=== PATIENT | female | born 1990 | race American Indian/Alaskan Native ===

== ENCOUNTER 2016-12-12 13:16 | Outpatient (CLI) | payer BC, MEDICAID ==
[2016-12-12 15:17] LABS: Bacteria,Urine 2+ /HPF (Negative); Bilirubin,Urine NEG (Negative); Blood,Urine SM (Negative); Ketones,Urine NEG (Negative); Leukocyte Esterase,Urine LG (Negative); Nitrite,Urine NEG (Negative); Protein,Urine <15 mg/dL mg/dL (Negative); Urobilinogen,Urine < 2.0 mg/dL (<2.0)
[2016-12-12 15:24] VITALS: BP 117/89
== END 2016-12-12 17:08 | disposition home or self-care (01) ==
LOC: TRG 13:16
PROVIDERS: ATTEND Obstetrics & Gynecology
DX: O47.03 False labor before 37 completed weeks of gestation, third trimester (principal); Z3A.32 32 weeks gestation of pregnancy
CPT/HCPCS: 59025; 81001; 87086; 96360; 96361

== ENCOUNTER 2017-01-15 11:01 | Outpatient (CLI) | payer BC, MEDICAID ==
[2017-01-15 14:36] VITALS: BP 120/56
--- NOTE | 2017-01-15 15:32 | Ultrasound Report ---
BIOPHYSICAL PROFILE: INDICATION: well being. COMPARISON: None similar. TECHNIQUE: Transabdominal ultrasound with Doppler interrogation. 2 - breathing movements 2 - movements 2 - posture and tone 2 - Qualitative amniotic fluid volume 8 - TOTAL SCORE OF POSSIBLE 8 Heart Rate (bpm) 163 CONCLUSION: Findings, as above.
--- NOTE | 2017-01-15 15:34 | Ultrasound Report ---
OB LIMITED INDICATION: well being. COMPARISON: None similar at this institution. TECHNIQUE: Transabdominal grayscale ultrasound with Doppler interrogation. Gestation: Garcia Position: Cephalic Amniotic Fluid: WNL (7-24 cm) ZACH = 18.4 cm Heart Rate: 162 BPM CONCLUSION: Findings, as above.
== END 2017-01-15 14:40 | disposition home or self-care (01) ==
LOC: TRG 11:01
PROVIDERS: ATTEND Obstetrics & Gynecology
DX: O47.1 False labor at or after 37 completed weeks of gestation (principal); Z3A.37 37 weeks gestation of pregnancy
CPT/HCPCS: 59025; 76815; 76819

== ENCOUNTER 2017-01-30 15:55 | Inpatient (IN) | payer BC, MEDICAID ==
[2017-01-30] MEDS ORDERED: NORMODYNE IV ONE ×3 (17:41→20:07)
[2017-01-30 18:16] LABS: Hematocrit 40.7 % (30.3-42.9); Hemoglobin 13.7 gm/dl (10.1-14.3); Mean Corpuscular HGB Conc 34 % (30-34); Mean Corpuscular Hemoglobin 30 pg (28-32); Mean Corpuscular Volume 90 fl (79-97); Platelet Count 378 K/mm3 (140-440); Red Blood Count 4.55 M/mm3 (3.65-5.03); Red Cell Distribution Width 13.5 % (13.2-15.2); White Blood Count 10.3 K/mm3 (4.5-11.0)
--- NOTE | 2017-01-30 18:22 | Emergency Department Report ---
ED General Adult HPI - General Chief complaint: Neck Pain/Injury Stated complaint: NECK AND SHOULDER PAIN Time Seen by Provider: 01/30/17 18:16 Source: patient, RN notes reviewed, old records reviewed Mode of arrival: Ambulatory Limitations: No Limitations - History of Present Illness Initial comments: This is a 26-year-old female who is previously unknown to this provider. The patient recently had a . Her layaway clerk is Dr. Posada Patient presents to the ER with left-sided neck pain and headache. The neck pain is achy and sharp, and radiates into the occipital region. There is no neck stiffness, there is no severe sudden or thunderclap headache, there is no chest pain, there is no abdominal pain, there is no nausea or vomiting. -: Gradual, days(s) Location: head, neck Radiation: back (of head) Severity scale (0 -10): 0 Quality: aching Consistency: constant Improves with: none Worsens with: none Associated Symptoms: headaches - Related Data Home Medications Medication Instructions Recorded Confirmed Last Taken Vit-Fe Fumar-FA [ 1 tab PO QDAY 01/18/17 01/30/17 01/30/17 Vitamin] Previous Rx's Medication Instructions Recorded Last Taken Type Labetalol [Normodyne TAB] 200 mg PO BID #60 tablet 02/01/17 Unknown Rx Allergies Allergy/AdvReac Type Severity Reaction Status Date / Time No Known Allergies Allergy Unverified 05/02/15 19:44 ED Review of Systems ROS: Stated complaint: NECK AND SHOULDER PAIN Other details as noted in HPI Constitutional: denies: fever, malaise Eyes: denies: eye discharge ENT: denies: epistaxis Respiratory: denies: cough Cardiovascular: denies: chest pain Gastrointestinal: denies: vomiting Genitourinary: denies: dysuria Musculoskeletal: arthralgia Neurological: headache. denies: weakness ED Past Medical Hx - Past Medical History Hx Hypertension: No Hx Congestive Heart Failure: No Hx Diabetes: No Hx Deep Vein Thrombosis: No Hx Renal Disease: No Hx Sickle Cell Disease: No Hx Seizures: No Hx Asthma: No Hx COPD: No Hx HIV: No - Surgical History Additional Surgical History: - Social History Smoking Status: Never Smoker Substance Use Type: None - Medications Home Medications: Home Medications Medication Instructions Recorded Confirmed Last Taken Type Vit-Fe Fumar-FA [ 1 tab PO QDAY 01/18/17 01/30/17 01/30/17 History Vitamin] Labetalol [Normodyne TAB] 200 mg PO BID #60 tablet 02/01/17 Unknown Rx ED Physical Exam - General Limitations: No Limitations General appearance: alert, in no apparent distress - Head Head exam: Present: atraumatic, normocephalic - Eye Eye exam: Present: normal appearance, PERRL, EOMI, other (visual acuity intact to finger counting, color perception, reading at a close distance). Absent: nystagmus - ENT ENT exam: Present: normal exam, normal orophraynx, mucous membranes moist, normal external ear exam - Neck Neck exam: Present: normal inspection, tenderness (there is reproducible left- sided paracervical tenderness), full ROM. Absent: meningismus - Respiratory Respiratory exam: Present: normal lung sounds bilaterally. Absent: respiratory distress - Cardiovascular Cardiovascular Exam: Present: regular rate, normal rhythm, normal heart sounds. Absent: systolic murmur, diastolic murmur, rubs, gallop - GI/Abdominal GI/Abdominal exam: Present: soft, normal bowel sounds. Absent: distended, tenderness, guarding, rebound, rigid, pulsatile mass - Extremities Exam Extremities exam: Present: normal inspection, full ROM, pedal edema. Absent: joint swelling, calf tenderness - Back Exam Back exam: Present: normal inspection, full ROM. Absent: tenderness, CVA tenderness (R), paraspinal tenderness, vertebral tenderness - Neurological Exam Neurological exam: Present: alert, oriented X3, CN II-XII intact, normal gait, other (Extraocular movements intact. Tongue midline. No facial droop. Facial sensation intact to light touch in the V1, V2, V3 distribution bilaterally. 5 and 5 strength in 4 extremities.. Sensation is intact to light touch in 4 extremities.). Absent: motor sensory deficit - Psychiatric Psychiatric exam: Present: normal affect, normal mood - Skin Skin exam: Present: warm, dry, intact, normal color, other ( surgical site is healing well with no redness, pus or streaking). Absent: rash ED Course Vital Signs 01/30/17 01/30/17 01/30/17 17:23 17:52 18:00 Temperature 99.3 F Pulse Rate 77 67 Respiratory 18 16 Rate Blood Pressure 191/115 179/113 Blood Pressure [Right] O2 Sat by Pulse 100 99 98 Oximetry 01/30/17 01/30/17 01/30/17 18:03 18:11 18:21 Temperature 98.4 F Pulse Rate 68 79 69 Respiratory 13 13 25 H Rate Blood Pressure 181/122 179/113 179/113 Blood Pressure 181/122 [Right] O2 Sat by Pulse 100 100 98 Oximetry 01/30/17 01/30/17 01/30/17 18:36 19:43 19:51 Temperature Pulse Rate 63 66 Respiratory 25 H Rate Blood Pressure 179/112 194/117 174/105 Blood Pressure [Right] O2 Sat by Pulse 97 Oximetry 01/30/17 01/30/17 01/30/17 20:00 20:11 20:12 Temperature Pulse Rate 73 72 66 Respiratory 32 H 32 H Rate Blood Pressure 154/96 154/96 174/105 Blood Pressure [Right] O2 Sat by Pulse 96 97 Oximetry 01/30/17 01/30/17 01/30/17 20:21 20:25 20:26 Temperature 98.3 F Pulse Rate 74 80 66 Respiratory 30 H 25 H 25 H Rate Blood Pressure 165/87 194/117 Blood Pressure 174/105 [Right] O2 Sat by Pulse 98 97 98 Oximetry 01/30/17 01/30/17 01/30/17 20:30 20:35 20:41 Temperature Pulse Rate 82 88 89 Respiratory 21 27 H 26 H Rate Blood Pressure 154/84 154/84 154/84 Blood Pressure [Right] O2 Sat by Pulse 99 96 96 Oximetry 01/30/17 01/30/17 01/30/17 20:45 20:50 20:55 Temperature Pulse Rate 92 H 86 92 H Respiratory 25 H 28 H 25 H Rate Blood Pressure 126/67 154/84 154/84 Blood Pressure [Right] O2 Sat by Pulse 93 97 96 Oximetry 01/30/17 01/30/17 01/30/17 21:00 21:05 21:11 Temperature Pulse Rate 93 H 92 H 97 H Respiratory 25 H 25 H 30 H Rate Blood Pressure 132/72 132/72 132/72 Blood Pressure [Right] O2 Sat by Pulse 95 97 97 Oximetry 01/30/17 01/30/17 01/30/17 21:15 21:21 21:25 Temperature Pulse Rate 96 H 96 H 100 H Respiratory 28 H 27 H 27 H Rate Blood Pressure 148/75 148/75 126/67 Blood Pressure [Right] O2 Sat by Pulse 94 96 96 Oximetry 01/30/17 01/30/17 01/30/17 21:30 21:33 21:35 Temperature Pulse Rate 92 H 93 H 100 H Respiratory 28 H 26 H 21 Rate Blood Pressure 152/84 152/84 152/84 Blood Pressure [Right] O2 Sat by Pulse 94 96 96 Oximetry 01/30/17 01/30/17 01/30/17 21:37 21:39 21:41 Temperature Pulse Rate 99 H 100 H 105 H Respiratory 26 H 27 H 23 Rate Blood Pressure 152/84 152/84 152/84 Blood Pressure [Right] O2 Sat by Pulse 96 96 95 Oximetry 01/30/17 01/30/17 01/30/17 21:43 21:45 21:47 Temperature Pulse Rate 93 H 98 H 100 H Respiratory 32 H 28 H 34 H Rate Blood Pressure 152/84 137/92 137/92 Blood Pressure [Right] O2 Sat by Pulse 97 95 96 Oximetry 01/30/17 01/30/17 01/30/17 21:49 21:51 21:53 Temperature Pulse Rate 103 H 96 H 91 H Respiratory 28 H 35 H 25 H Rate Blood Pressure 137/92 137/92 154/96 Blood Pressure [Right] O2 Sat by Pulse 96 95 96 Oximetry 01/30/17 01/30/17 01/30/17 21:54 21:57 21:59 Temperature Pulse Rate 93 H 92 H 99 H Respiratory 25 H 34 H 28 H Rate Blood Pressure 154/96 152/84 152/84 Blood Pressure [Right] O2 Sat by Pulse 95 96 96 Oximetry 01/30/17 01/30/17 01/30/17 22:00 22:03 22:05 Temperature Pulse Rate 106 H 104 H 106 H Respiratory 29 H 27 H 27 H Rate Blood Pressure 132/90 132/90 123/76 Blood Pressure [Right] O2 Sat by Pulse 91 95 93 Oximetry 01/30/17 01/30/17 01/30/17 22:07 22:09 22:10 Temperature Pulse Rate 108 H 109 H 108 H Respiratory 26 H 27 H 27 H Rate Blood Pressure 123/76 119/73 119/73 Blood Pressure [Right] O2 Sat by Pulse 95 95 94 Oximetry 01/30/17 01/30/17 01/30/17 22:13 22:15 22:16 Temperature Pulse Rate 110 H 120 H 125 H Respiratory 27 H 34 H 32 H Rate Blood Pressure 119/73 123/81 123/81 Blood Pressure [Right] O2 Sat by Pulse 95 95 95 Oximetry 01/30/17 01/30/17 01/30/17 22:19 22:20 22:23 Temperature Pulse Rate 117 H 114 H 111 H Respiratory 28 H 26 H 30 H Rate Blood Pressure 124/76 124/76 124/76 Blood Pressure [Right] O2 Sat by Pulse 94 93 94 Oximetry 01/30/17 01/30/17 01/30/17 22:25 22:27 22:29 Temperature Pulse Rate 114 H 119 H 116 H Respiratory 23 22 19 Rate Blood Pressure 124/80 119/73 124/70 Blood Pressure [Right] O2 Sat by Pulse 94 96 95 Oximetry 01/30/17 01/30/17 01/30/17 22:30 22:33 22:34 Temperature Pulse Rate 120 H 110 H 110 H Respiratory 26 H 28 H 25 H Rate Blood Pressure 124/70 124/70 124/70 Blood Pressure [Right] O2 Sat by Pulse 95 96 Oximetry 01/30/17 01/30/17 01/30/17 22:37 22:39 22:40 Temperature Pulse Rate 109 H 110 H 105 H Respiratory 28 H 24 17 Rate Blood Pressure 123/64 132/69 132/69 Blood Pressure [Right] O2 Sat by Pulse 95 94 94 Oximetry 01/30/17 01/30/17 01/30/17 22:43 22:45 22:46 Temperature Pulse Rate 110 H 109 H 111 H Respiratory 21 26 H 23 Rate Blood Pressure 132/69 113/68 113/68 Blood Pressure [Right] O2 Sat by Pulse 94 96 94 Oximetry 01/30/17 01/30/17 01/30/17 22:49 22:50 22:53 Temperature Pulse Rate 112 H 109 H 109 H Respiratory 24 23 26 H Rate Blood Pressure 116/66 116/66 116/66 Blood Pressure [Right] O2 Sat by Pulse 93 93 94 Oximetry 01/30/17 01/30/17 01/30/17 22:55 22:57 22:59 Temperature Pulse Rate 118 H 119 H 119 H Respiratory 34 H 25 H 29 H Rate Blood Pressure 122/78 113/68 113/68 Blood Pressure [Right] O2 Sat by Pulse 93 95 95 Oximetry 01/30/17 01/30/17 01/30/17 23:00 23:27 23:29 Temperature Pulse Rate 124 H 142 H 140 H Respiratory 23 32 H 15 Rate Blood Pressure 121/64 125/72 125/72 Blood Pressure [Right] O2 Sat by Pulse 94 98 98 Oximetry 01/30/17 01/30/17 01/30/17 23:30 23:31 23:33 Temperature Pulse Rate 144 H 153 H 159 H Respiratory 15 19 23 Rate Blood Pressure 115/74 115/74 115/74 Blood Pressure [Right] O2 Sat by Pulse 96 97 98 Oximetry 01/30/17 01/30/17 01/30/17 23:47 23:49 23:50 Temperature Pulse Rate 140 H 139 H 136 H Respiratory 18 28 H 34 H Rate Blood Pressure 111/76 119/69 119/69 Blood Pressure [Right] O2 Sat by Pulse 89 97 96 Oximetry 01/30/17 01/30/17 01/30/17 23:51 23:53 23:55 Temperature Pulse Rate 133 H 123 H 123 H Respiratory 20 26 H 26 H Rate Blood Pressure 119/69 119/69 119/68 Blood Pressure [Right] O2 Sat by Pulse 96 97 94 Oximetry 01/30/17 01/30/17 01/30/17 23:57 23:58 23:59 Temperature Pulse Rate 122 H 123 H 122 H Respiratory 30 H 32 H 31 H Rate Blood Pressure 119/68 119/69 116/54 Blood Pressure [Right] O2 Sat by Pulse 96 96 95 Oximetry 01/31/17 01/31/17 01/31/17 00:00 00:01 00:03 Temperature Pulse Rate 120 H 122 H 119 H Respiratory 30 H 27 H 24 Rate Blood Pressure 116/54 116/54 116/54 Blood Pressure [Right] O2 Sat by Pulse 93 95 96 Oximetry 01/31/17 01/31/17 01/31/17 00:04 00:05 00:07 Temperature Pulse Rate 123 H 120 H 118 H Respiratory 25 H 29 H 26 H Rate Blood Pressure 116/54 116/56 116/56 Blood Pressure [Right] O2 Sat by Pulse 95 94 95 Oximetry 01/31/17 01/31/17 01/31/17 00:09 00:10 00:11 Temperature Pulse Rate 118 H 117 H 116 H Respiratory 28 H 26 H 24 Rate Blood Pressure 114/56 114/56 114/56 Blood Pressure [Right] O2 Sat by Pulse 95 95 95 Oximetry 01/31/17 01/31/17 01/31/17 00:13 00:15 00:17 Temperature Pulse Rate 118 H 114 H 113 H Respiratory 26 H 26 H 25 H Rate Blood Pressure 114/56 114/60 114/60 Blood Pressure [Right] O2 Sat by Pulse 94 94 94 Oximetry 01/31/17 01/31/17 01/31/17 00:18 00:19 00:20 Temperature Pulse Rate 112 H 113 H 110 H Respiratory 28 H 25 H 26 H Rate Blood Pressure 114/56 111/57 111/57 Blood Pressure [Right] O2 Sat by Pulse 94 95 95 Oximetry 01/31/17 01/31/17 01/31/17 00:21 00:23 00:25 Temperature Pulse Rate 110 H 118 H 115 H Respiratory 26 H 20 23 Rate Blood Pressure 111/57 111/57 110/56 Blood Pressure [Right] O2 Sat by Pulse 95 94 94 Oximetry 01/31/17 01/31/17 01/31/17 00:27 00:29 00:30 Temperature Pulse Rate 121 H 122 H 119 H Respiratory 24 19 22 Rate Blood Pressure 110/56 113/66 113/66 Blood Pressure [Right] O2 Sat by Pulse 97 97 93 Oximetry 01/31/17 01/31/17 01/31/17 00:31 00:33 00:35 Temperature Pulse Rate 116 H 119 H 115 H Respiratory 32 H 31 H 30 H Rate Blood Pressure 113/66 113/66 122/70 Blood Pressure [Right] O2 Sat by Pulse 95 95 91 Oximetry 01/31/17 01/31/17 01/31/17 00:37 00:39 00:40 Temperature Pulse Rate 114 H 115 H 115 H Respiratory 29 H 29 H 13 Rate Blood Pressure 122/70 122/70 112/68 Blood Pressure [Right] O2 Sat by Pulse 94 93 95 Oximetry 01/31/17 01/31/17 01/31/17 00:41 00:43 00:45 Temperature Pulse Rate 110 H 109 H 107 H Respiratory 13 19 22 Rate Blood Pressure 112/68 112/68 110/67 Blood Pressure [Right] O2 Sat by Pulse 98 97 94 Oximetry 01/31/17 01/31/17 01/31/17 00:47 00:49 00:50 Temperature Pulse Rate 106 H 106 H 106 H Respiratory 21 22 22 Rate Blood Pressure 110/67 104/65 104/65 Blood Pressure [Right] O2 Sat by Pulse 98 98 97 Oximetry 01/31/17 01/31/17 01/31/17 00:51 00:53 00:55 Temperature Pulse Rate 105 H 109 H 109 H Respiratory 21 22 20 Rate Blood Pressure 104/65 104/65 107/65 Blood Pressure [Right] O2 Sat by Pulse 97 99 98 Oximetry 01/31/17 01/31/17 01:00 01:30 Temperature 99.1 F Pulse Rate 109 H 129 H Respiratory 20 18 Rate Blood Pressure Blood Pressure 107/65 138/82 [Right] O2 Sat by Pulse 98 99 Oximetry - Reevaluation(s) Reevaluation #1: 01/30/17 20:09 Differential diagnosis, including but not limited to: Migraine headache, tension headache, cluster headache, vertebral dissection, carotid dissection, paracervical neck pain, venous sinus thrombosis, preeclampsia, posterior reversible encephalopathy syndrome Assessment and plan: 26-year-old female with hypertension that is , 1- 2+ pitting edema in the lower extremities, normal liver function tests, and proteinuria in her urine. Concerning for preeclampsia. Patient given labetalol multiple times and started on magnesium drip. CT angiogram machine is not working at this time. Emergent MRI brain, MR angiogram, mr venogram obtained to exclude venous sinus thrombosis, carotid dissection, and alternative causes of headache. The patient's headache is not history consistent with subarachnoid hemorrhage. She appears quite comfortable and is taking on a cellular phone and is not in any distress. Currently waiting interpretation of MRI. Case was discussed with the nurse optomechanical technician for patient's layaway clerk, Dr. Sanabria. She tentatively accepts the patient to the mother-baby service for hypertensive urgency and presumed preeclampsia, assuming MRI does not demonstrate any significant pathology. Care is transferred to the overnight physician, Dr. Hernadez, who will follow-up on the patient's repeat blood pressure after third dose of labetalol, and follow up on MR interpretations. He will contact the gynecology service once her MR has been interpreted, assuming scans do not Dem[place] any findings that would require transfer. ED Medical Decision Making - Lab Data Result diagrams: 01/30/17 17:32 01/30/17 17:32 Vital Signs 11/01/30/17 01/30/17 17:23 18:03 18:36 Temperature 99.3 F 98.4 F Pulse Rate 77 68 63 Respiratory 18 13 Rate Blood Pressure 191/115 181/122 179/112 Blood Pressure 181/122 [Right] O2 Sat by Pulse 100 100 Oximetry 01/30/17 20:12 Temperature Pulse Rate 66 Respiratory Rate Blood Pressure 174/105 Blood Pressure [Right] O2 Sat by Pulse Oximetry Lab Results 01/30/17 01/30/17 01/30/17 Range/Units 17:32 17:32 17:57 WBC 10.3 (4.5-11.0) K/mm3 RBC 4.55 (3.65-5.03) M/mm3 Hgb 13.7 (10.1-14.3) gm/dl Hct 40.7 (30.3-42.9) % MCV 90 (79-97) fl MCH 30 (28-32) pg MCHC 34 (30-34) % RDW 13.5 (13.2-15.2) % Plt Count 378 (140-440) K/mm3 Sodium 136 L (137-145) mmol/L Potassium 4.1 (3.6-5.0) mmol/L Chloride 99.6 (98-107) mmol/L Carbon Dioxide 22 (22-30) mmol/L Anion Gap 19 mmol/L BUN 8 (7-17) mg/dL Creatinine 0.5 L (0.7-1.2) mg/dL Estimated GFR > 60 ml/min BUN/Creatinine Ratio 16 % Glucose 85 (65-100) mg/dL Calcium 9.1 (8.4-10.2) mg/dL Total Bilirubin < 0.20 (0.1-1.2) mg/dL AST 18 (5-40) units/L ALT 23 (7-56) units/L Alkaline Phosphatase 110 (35-129) units/L Total Protein 6.2 L (6.3-8.2) g/dL Albumin 3.5 L (3.9-5) g/dL Albumin/Globulin Ratio 1.3 % Urine Color Yellow (Yellow) Urine Turbidity Clear (Clear) Urine pH 7.0 (5.0-7.0) Ur Specific [place] 1.018 (1.003-1.030) Urine Protein 30 mg/dl (Negative) mg/dL Urine Glucose (UA) Neg (Negative) mg/dL Urine Ketones Neg (Negative) mg/dL Urine Blood Lg (Negative) Urine Nitrite Neg (Negative) Urine Bilirubin Neg (Negative) Urine Urobilinogen < 2.0 (<2.0) mg/dL Ur Leukocyte Esterase Lg (Negative) Urine WBC (Auto) 168.0 H (0.0-6.0) /HPF Urine RBC (Auto) > 182.0 (0.0-6.0) /HPF U Epithel Cells (Auto) 3.0 (0-13.0) /HPF Ur Renal Epithelial Cell 3 /LPF Urine Mucus Few /HPF - Radiology Data Radiology results: pending Critical care attestation.: If time is entered above; I have spent that time in minutes in the direct care of this critically ill patient, excluding procedure time. ED Disposition Clinical Impression: Severe pre-eclampsia, Disposition: OP ADMIT IP TO THIS HOSP Is pt being admited?: Yes Does the pt Need Aspirin: No Condition: Good
[2017-01-30] MEDS ORDERED: MAGNESIUM SULFATE 2GM/50ML 0 GM/0 ML BAG IV ONE (18:35)
[2017-01-30 18:36] LABS: Alanine Aminotransferase 23 units/L (7-56); Albumin 3.5 g/dL (3.9-5); Albumin/Globulin Ratio 1.3 %; Alkaline Phosphatase 110 units/L (35-129); Anion Gap 19 mmol/L; BUN/Creatinine Ratio 16; Bilirubin,Total < 0.20 mg/dL (0.1-1.2); Blood Urea Nitrogen 8 mg/dL (7-17); Calcium 9.1 mg/dL (8.4-10.2); Carbon Dioxide 22 mmol/L (22-30); Chloride 99.6 mmol/L (98-107); Glucose 85 mg/dL (65-100); Potassium 4.1 mmol/L (3.6-5.0); Sodium 136 mmol/L (137-145); Total Protein 6.2 g/dL (6.3-8.2)
[2017-01-30] MEDS ORDERED: ATIVAN ONE (18:46)
[2017-01-30] MEDS ORDERED: ATIVAN IV ONE (18:57)
[2017-01-30 19:18] LABS: Bilirubin,Urine NEG (Negative); Blood,Urine LG (Negative); Ketones,Urine NEG (Negative); Leukocyte Esterase,Urine LG (Negative); Mucus,Urine FEW /HPF; Nitrite,Urine NEG (Negative); Renal Epithelial Cells,Urine 3 /LPF; Urobilinogen,Urine < 2.0 mg/dL (<2.0)
[2017-01-30 19:20] LABS: RBC,Urine > 182.0 /HPF (0.0-6.0)
[2017-01-30] MEDS ORDERED: MAGNESIUM SULFATE 40GM/1000ML 40 GM/1,000 ML BAG IV ONE (19:20)
--- NOTE | 2017-01-30 20:38 | Magnetic Resonance Report ---
FINAL REPORT PROCEDURE: MRI brain without contrast. TECHNIQUE: Magnetic resonance imaging of the brain was performed without contrast material. HISTORY: Headache, hypertension, question venous sinus thrombosis versus carotid dissection. COMPARISON: No prior studies are available for comparison. FINDINGS: The ventricles are normal in size. The [place] matter and white matter have normal signal intensity. There are no mass lesions. There is no intracranial hemorrhage. There are no signs of restricted diffusion. The major cerebral vascular flow voids appear patent. The mastoid air cells and paranasal sinuses are grossly clear. IMPRESSION: Normal study.
--- NOTE | 2017-01-30 20:43 | Magnetic Resonance Report ---
FINAL REPORT PROCEDURE: Magnetic resonance angiogram of the brain without contrast. TECHNIQUE: Axial 3-D [id number] MR angiography of the [place] and brain was performed. The source images were reconstructed in various views using maximum intensity projection. HISTORY: Headache, hypertension, question venous sinus thrombosis versus carotid artery dissection. COMPARISON: No prior studies are available for comparison. FINDINGS: Both distal internal carotid arteries are patent. Both anterior cerebral arteries are patent. The anterior communicating artery is patent. Both middle cerebral arteries are patent. Both posterior communicating arteries are patent. Both distal vertebral arteries are patent. The posterior inferior cerebellar arteries are not visualized. This may be due to decreased signal to noise ratio at the base of the study.. The basilar artery is patent. Both anterior inferior cerebellar arteries are patent. Both superior cerebellar and both posterior cerebral arteries are patent. There are no signs of aneurysm disease. There are no signs of a vasculitis. There is no evidence of an internal carotid artery dissection. IMPRESSION: Normal study.
--- NOTE | 2017-01-30 20:48 | Magnetic Resonance Report ---
FINAL REPORT PROCEDURE: Magnetic resonance angiogram of the neck without contrast. TECHNIQUE: MR angiography of the cervical carotid and vertebral arteries was performed. The source images were reconstructed in various views using maximum intensity projection. HISTORY: Headache, hypertension, question venous sinus thrombosis versus carotid artery dissection. COMPARISON: No prior studies are available for comparison. FINDINGS: Both common carotid arteries are widely patent as far as visualized. Both carotid artery bifurcations are widely patent. There is no narrowing of the internal nor external carotid arteries. There are no signs of an internal carotid artery dissection. Both vertebral arteries are patent. IMPRESSION: Normal study.
[2017-01-30] MEDS ORDERED: CARDENE 50 MG in NACL 0.9% 250ML 230 ML IV SCH (21:40)
[2017-01-31] MEDS ORDERED: NARCAN 0.4 MG/1 ML IV PRN (02:13)
--- NOTE | 2017-01-31 02:28 | History and Physical Report ---
History of Present Illness Date of examination: 01/31/17 (pt presented to the ED with c/o head/neck pain ) Date of admission: 01/31/17 00:28 History of present illness: Delivery hx as noted below Pt came into the ED here @ [facility] last evening with c/ o severe GARSIA and neck pain. Her initial BPs were 170-190/105-113. She was evaluated in the ED Started on MGSO4 given several doses of Labetalol. Had an MRA of the head and neck and a brain MRI all studies were wnl. Decision made to admit to M/B to complete 24hr of MGSO4 and to closely evaluate PP PreE. Pt was transfered to the unit from the ED in stable condition Delivery Date: 01/18/2017 Gestational Age: 38 weeks Anesthesia: epidural Delivery Type: Weight: 7.69 lbs Gender: female Location: [facility] Complications: MECONIUM FTP CAT 2 - 1 minute: 8 5 minutes: 9 Problems (prior to this update): 37 weeks gestation of (ICD-765.29) (HUM98-A5N.37) Encounter for supervision of normal first , third trimester (ICD-V22.0 ) (VBI00-A05.03) Leukorrhea (ICD-623.5) (VGK04-L35.8) ASCUS Pap (ICD-795.01) (HVE72-R46.89) Family History of Diabetes (ICD-V18.0) (MOV98-F27.3) Medications (prior to this update): PYRIDIUM 200 MG ORAL TABLET (PHENAZOPYRIDINE HCL) 1 bid METRONIDAZOLE 500 MG ORAL TABLET (METRONIDAZOLE) take all 4 tabs at one time Admission Data Admitted for: spontaneous UC's Contractions began approximately 01/18/2017 Stage I Medications given: Augmentation agent: Pitocin per protocol Analgesia: Fentanyl 100mcg, 1 doses Epidural placed 01/18/2017 Stage II Date of Delivery: 01/18/2017 Delivery Type: Presentation: vertex Suctioning: bulb - after delivery Resuscitation: routine blowby oxygen Gender: female Weight: 7.69 lbs : 1 minute: 8 5 minutes: 9 Stage III Placenta delivered with manual extraction intact, 3 vessel cord. Medications given: Pitocin - 20 units IV EBL: 500-1000cc Cervix intact Hemostasis achieved, fundus firm Attending Physician Statement I performed the delivery as documented above. Signature: ...................................................................Alessia Saldana MD January 18, 2017 6:25 AM Past History - Obstetrical History : 1 Medications and Allergies Allergies Allergy/AdvReac Type Severity Reaction Status Date / Time No Known Allergies Allergy Unverified 05/02/15 19:44 Home Medications Medication Instructions Recorded Confirmed Last Taken Type Vit-Fe Fumar-FA [ 1 tab PO QDAY 01/18/17 01/30/17 01/30/17 History Vitamin] Active Meds: Active Medications Acetaminophen (Tylenol) 650 mg PO Q4H PRN PRN Reason: Fever >100.5/GARSIA Heparin Sodium (Porcine) (Heparin) 5,000 unit SUB-Q Q8HR MARSHAL Magnesium Sulfate (Magnesium Sulfate 40gm/1000ml) 40 gm in 1,000 mls @ 25 mls/ hr IV ONCE.ED ONE PRN Reason: 1 GM/HR Stop: 02/01/17 11:19 Last Admin: 01/30/17 19:54 Dose: 1 gm/hr, 25 mls/hr Nicardipine HCl 50 mg/ Sodium (Chloride) 250 mls @ 25 mls/hr IV TITR MARSHAL; 5 MG/ HR PRN Reason: Protocol Last Titration: 01/31/17 00:41 Dose: 5 mg/hr, 25 mls/hr Dextrose/Lactated Ringer's (D5lr) 1,000 mls @ 125 mls/hr IV DIRECT MARSHAL Naloxone HCl (Narcan 0.4 Mg/1 Ml) 0.1 mg IV Q2MIN PRN PRN Reason: Res Rate </= 8 or 02 SAT < 92% Sodium Chloride (Sodium Chloride Flush Syringe 10 Ml) 10 ml IV PRN NR - Vital Signs Vital signs: Vital Signs Temp Pulse Resp BP Pulse Ox 99.3 F 77 18 191/115 100 01/30/17 17:23 01/30/17 17:23 01/30/17 17:23 01/30/17 17:23 01/30/17 17:23 Temp Pulse Resp BP Pulse Ox 98.3 F 109 H 20 107/65 98 01/30/17 20:26 01/31/17 01:00 01/31/17 01:00 01/31/17 01:00 01/31/17 01:00 - Physical Exam Breasts: Positive: normal Cardiovascular: Regular rate, Normal S1, Normal S2 Lungs: Positive: Normal air movement Abdomen: Positive: normal appearance, soft, normal bowel sounds. Negative: distention, tenderness Genitourinary (Female): Positive: normal external genitalia Vulva: both: normal Vagina: Positive: normal moisture. Negative: discharge Cervix: Negative: lesion, discharge Uterus: Positive: normal size, normal contour Adnexa: both: normal Anus/Rectum: Positive: normal perianal skin, heme negative. Negative: rectal mass, hemorrhoids Extremities: Positive: edema Deep Tendon Reflex Grade: Normal but brisk +3 Results Result Diagrams: 01/30/17 17:32 01/30/17 17:32 Abnormal lab results 01/30/17 01/30/17 Range/Units 17:32 17:57 Sodium 136 L (137-145) mmol/L Creatinine 0.5 L (0.7-1.2) mg/dL Total Protein 6.2 L (6.3-8.2) g/dL Albumin 3.5 L (3.9-5) g/dL Urine WBC (Auto) 168.0 H (0.0-6.0) /HPF All other labs normal. Assessment and Plan - Patient Problems (1) Severe pre-eclampsia, Onset Date: ~01/30/17 Current Visit: Yes Status: Acute Plan to address problem: 26yo s/p section approx 12 days ago. Presented to ED tonight with c/o GARSIA and neck pain. BP were 170-190/110-115 initially Treated in ED with MGSO4 and Labetalol, and Nicardipine drip. BPs now 107-130/70-80. Pt complains of mild GARSIA Tylenol ordered. MGSO4 continues @ 1gm/hr Dr. Sanabria consulted Orders in EMR. (please see ED note for complete details of evaluation there)
[2017-01-31] MEDS ORDERED: SODIUM CHLORIDE FLUSH SYRINGE 10 ML IV NR (03:00)
[2017-01-31] MEDS: TYLENOL PO PRN ×2 (03:17→08:15)
[2017-01-31] MEDS: D5LR 1,000 ML IV SCH ×2 (03:19→15:14)
[2017-01-31] MEDS ORDERED: HEPARIN SUB-Q SCH (06:00)
--- NOTE | 2017-01-31 09:25 | Progress Note ---
Assessment and Plan - Patient Problems (1) Severe pre-eclampsia, Onset Date: ~01/30/17 Current Visit: Yes Status: Acute (2) Breast engorgement Onset Date: ~01/31/17 Current Visit: Yes Status: Acute Plan to address problem: (L) (3) delivery delivered Onset Date: ~01/18/17 Current Visit: No Status: Acute Subjective - Subjective Date of service: 01/31/17 Principal diagnosis: PP Preeclampsia, s/p c/s 01/18/2017 Interval history: c/o GARSIA and neck pain, denies abd pain or visual changes Patient reports: appetite normal Objective - Vital Signs Latest vital signs: Vital Signs Temp Pulse Resp BP BP Pulse Ox 01/31/17 06:32 98.7 F 95 H 16 127/82 01/31/17 04:20 99 F 113 H 18 127/82 98 01/31/17 01:30 99.1 F 129 H 18 138/82 99 01/31/17 01:00 109 H 20 107/65 98 01/31/17 00:55 109 H 20 107/65 98 01/31/17 00:53 109 H 22 104/65 99 01/31/17 00:51 105 H 21 104/65 97 01/31/17 00:50 106 H 22 104/65 97 01/31/17 00:49 106 H 22 104/65 98 01/31/17 00:47 106 H 21 110/67 98 01/31/17 00:45 107 H 22 110/67 94 01/31/17 00:43 109 H 19 112/68 97 01/31/17 00:41 110 H 13 112/68 98 01/31/17 00:40 115 H 13 112/68 95 01/31/17 00:39 115 H 29 H 122/70 93 01/31/17 00:37 114 H 29 H 122/70 94 01/31/17 00:35 115 H 30 H 122/70 91 01/31/17 00:33 119 H 31 H 113/66 95 01/31/17 00:31 116 H 32 H 113/66 95 01/31/17 00:30 119 H 22 113/66 93 01/31/17 00:29 122 H 19 113/66 97 01/31/17 00:27 121 H 24 110/56 97 01/31/17 00:25 115 H 23 110/56 94 01/31/17 00:23 118 H 20 111/57 94 01/31/17 00:21 110 H 26 H 111/57 95 01/31/17 00:20 110 H 26 H 111/57 95 01/31/17 00:19 113 H 25 H 111/57 95 01/31/17 00:18 112 H 28 H 114/56 94 01/31/17 00:17 113 H 25 H 114/60 94 01/31/17 00:15 114 H 26 H 114/60 94 01/31/17 00:13 118 H 26 H 114/56 94 01/31/17 00:11 116 H 24 114/56 95 01/31/17 00:10 117 H 26 H 114/56 95 01/31/17 00:09 118 H 28 H 114/56 95 01/31/17 00:07 118 H 26 H 116/56 95 01/31/17 00:05 120 H 29 H 116/56 94 01/31/17 00:04 123 H 25 H 116/54 95 01/31/17 00:03 119 H 24 116/54 96 01/31/17 00:01 122 H 27 H 116/54 95 01/31/17 00:00 120 H 30 H 116/54 93 01/30/17 23:59 122 H 31 H 116/54 95 01/30/17 23:58 123 H 32 H 119/69 96 01/30/17 23:57 122 H 30 H 119/68 96 01/30/17 23:55 123 H 26 H 119/68 94 01/30/17 23:53 123 H 26 H 119/69 97 01/30/17 23:51 133 H 20 119/69 96 01/30/17 23:50 136 H 34 H 119/69 96 01/30/17 23:49 139 H 28 H 119/69 97 01/30/17 23:47 140 H 18 111/76 89 01/30/17 23:33 159 H 23 115/74 98 01/30/17 23:31 153 H 19 115/74 97 01/30/17 23:30 144 H 15 115/74 96 01/30/17 23:29 140 H 15 125/72 98 01/30/17 23:27 142 H 32 H 125/72 98 01/30/17 23:00 124 H 23 121/64 94 01/30/17 22:59 119 H 29 H 113/68 95 01/30/17 22:57 119 H 25 H 113/68 95 01/30/17 22:55 118 H 34 H 122/78 93 01/30/17 22:53 109 H 26 H 116/66 94 01/30/17 22:50 109 H 23 116/66 93 01/30/17 22:49 112 H 24 116/66 93 01/30/17 22:46 111 H 23 113/68 94 01/30/17 22:45 109 H 26 H 113/68 96 01/30/17 22:43 110 H 21 132/69 94 01/30/17 22:40 105 H 17 132/69 94 01/30/17 22:39 110 H 24 132/69 94 01/30/17 22:37 109 H 28 H 123/64 95 01/30/17 22:34 110 H 25 H 124/70 96 01/30/17 22:33 110 H 28 H 124/70 95 01/30/17 22:30 120 H 26 H 124/70 01/30/17 22:29 116 H 19 124/70 95 01/30/17 22:27 119 H 22 119/73 96 01/30/17 22:25 114 H 23 124/80 94 01/30/17 22:23 111 H 30 H 124/76 94 01/30/17 22:20 114 H 26 H 124/76 93 01/30/17 22:19 117 H 28 H 124/76 94 01/30/17 22:16 125 H 32 H 123/81 95 01/30/17 22:15 120 H 34 H 123/81 95 01/30/17 22:13 110 H 27 H 119/73 95 01/30/17 22:10 108 H 27 H 119/73 94 01/30/17 22:09 109 H 27 H 119/73 95 01/30/17 22:07 108 H 26 H 123/76 95 01/30/17 22:05 106 H 27 H 123/76 93 01/30/17 22:03 104 H 27 H 132/90 95 01/30/17 22:00 106 H 29 H 132/90 91 01/30/17 21:59 99 H 28 H 152/84 96 01/30/17 21:57 92 H 34 H 152/84 96 01/30/17 21:54 93 H 25 H 154/96 95 01/30/17 21:53 91 H 25 H 154/96 96 01/30/17 21:51 96 H 35 H 137/92 95 01/30/17 21:49 103 H 28 H 137/92 96 01/30/17 21:47 100 H 34 H 137/92 96 01/30/17 21:45 98 H 28 H 137/92 95 01/30/17 21:43 93 H 32 H 152/84 97 01/30/17 21:41 105 H 23 152/84 95 01/30/17 21:39 100 H 27 H 152/84 96 01/30/17 21:37 99 H 26 H 152/84 96 01/30/17 21:35 100 H 21 152/84 96 01/30/17 21:33 93 H 26 H 152/84 96 01/30/17 21:30 92 H 28 H 152/84 94 01/30/17 21:25 100 H 27 H 126/67 96 01/30/17 21:21 96 H 27 H 148/75 96 01/30/17 21:15 96 H 28 H 148/75 94 01/30/17 21:11 97 H 30 H 132/72 97 01/30/17 21:05 92 H 25 H 132/72 97 01/30/17 21:00 93 H 25 H 132/72 95 01/30/17 20:55 92 H 25 H 154/84 96 01/30/17 20:50 86 28 H 154/84 97 01/30/17 20:45 92 H 25 H 126/67 93 01/30/17 20:41 89 26 H 154/84 96 01/30/17 20:35 88 27 H 154/84 96 01/30/17 20:30 82 21 154/84 99 01/30/17 20:26 98.3 F 66 25 H 174/105 98 01/30/17 20:25 80 25 H 194/117 97 01/30/17 20:21 74 30 H 165/87 98 01/30/17 20:12 66 174/105 01/30/17 20:11 72 32 H 154/96 97 01/30/17 20:00 73 32 H 154/96 96 01/30/17 19:51 66 25 H 174/105 97 01/30/17 19:43 194/117 01/30/17 18:36 63 179/112 01/30/17 18:21 69 25 H 179/113 98 01/30/17 18:11 79 13 179/113 100 01/30/17 18:03 98.4 F 68 13 181/122 181/122 100 01/30/17 18:00 67 16 179/113 98 01/30/17 17:52 99 01/30/17 17:23 99.3 F 77 18 191/115 100 Intake and Output 01/30/17 01/31/17 01/31/17 22:59 06:59 14:59 Intake Total 15.417 459.792 Output Total 1600 Balance 15.417 -1140.208 Intake: IV 15.417 99.792 Cardene 50 mg In NaCl 0.9 15.417 99.792 % 250Ml 230 ml @ 5 MG/HR 25 mls/hr IV TITR MARSHAL Rx# :[id number] Intake, Free Water 360 Output: Urine 1600 Indwelling Catheter 1600 Other: Total, Output Amount 1600 Voiding Method Toilet Weight 75.6 kg 75.6 kg - Exam Breasts: Present: discharge, engorged (no s/s mastits, (L)). Absent: , tender Cardiovascular: Present: Regular rate Lungs: Present: Clear to auscultation Abdomen: Present: normal appearance, soft, normal bowel sounds Uterus: Present: firm, fundal height below umbilicus Extremities: Present: other (SCD in place) Deep Tendon Reflex Grade: Normal +2 Incision: Present: normal, dry, intact - Labs Labs: Abnormal lab results 01/30/17 01/30/17 01/31/17 Range/Units 17:32 17:57 05:38 Sodium 136 L (137-145) mmol/L Creatinine 0.5 L (0.7-1.2) mg/dL Magnesium 3.80 H (1.7-2.3) mg/dL Total Protein 6.2 L (6.3-8.2) g/dL Albumin 3.5 L (3.9-5) g/dL Urine WBC (Auto) 168.0 H (0.0-6.0) /HPF
[2017-01-31] MEDS: MOTRIN PO PRN ×2 (09:55→21:12)
[2017-01-31] MEDS ORDERED: PERCOCET 5/325 PO PRN (10:00)
[2017-01-31] MEDS ORDERED: APRESOLINE IV ONE (17:30)
[2017-01-31] MEDS: NORMODYNE PO SCH (21:07)
--- NOTE | 2017-02-01 08:45 | Discharge Summary ---
Providers - Providers Date of Admission: 01/31/17 00:28 Date of discharge: 02/01/17 Attending physician: BECKI STORM Primary care physician: POULTRY TRIMMER Hospitalization Reason for admission: other (PP pre E) Hospital course: Pt admitted for pp pre E. She is s/p IV magnesium for 24 hours. Currently on labetolol po with normal bps. Pt doing well. Will d/c home today with f/u in one week for bp check. Condition at discharge: Good Disposition: DC-01 TO HOME OR SELFCARE Plan - Discharge Medications Prescriptions: Labetalol [Normodyne TAB] 200 mg PO BID #60 tablet - Provider Discharge Summary Activity: routine, no sex for 6 weeks, no heavy lifting 4 weeks Diet: routine Instructions: routine Additional instructions: [] Smoking cessation referral if applicable(refer to patient education folder for contact #) [] Refer to [facility]'s [facility] Booklet Call your doctor immediately for: * Fever > 100.5 * Heavy vaginal bleeding ( >1 pad per hour) * Severe persistent headache * Shortness of breath * Reddened, hot, painful area to leg or breast * Drainage or odor from incision. * Keep incision clean and dry at all times and follow doctor's instructions regarding bathing/showering - Follow up plan Follow up: PRIMARY CARE, [Primary Care Provider] - 3-5 Days
--- NOTE | 2017-02-01 08:45 | Progress Note ---
Assessment and Plan - Patient Problems (1) Severe pre-eclampsia, Onset Date: ~01/30/17 Current Visit: Yes Status: Acute Plan to address problem: pt s/p magnesium and bp normal on meds. Will d/c home today. Subjective - Subjective Date of service: 02/01/17 Principal diagnosis: PP Preeclampsia, s/p c/s 01/18/2017 Interval history: Pt doing well. No headaches and no blurry vision. Pt desires to d/c home. Patient reports: appetite normal Objective - Vital Signs Latest vital signs: Vital Signs Temp Pulse Pulse Resp BP BP Pulse Ox 02/01/17 08:17 99.2 F 100 H 20 150/93 96 02/01/17 05:12 97.6 F 90 18 136/88 99 01/31/17 21:12 20 01/31/17 21:07 97 H 148/97 01/31/17 19:45 104 H 20 01/31/17 18:59 147/93 01/31/17 18:46 132/87 01/31/17 18:32 138/90 01/31/17 18:15 130/85 01/31/17 18:10 141/99 01/31/17 18:06 140/90 01/31/17 18:01 147/102 01/31/17 17:28 20 01/31/17 16:00 98.1 F 104 H 18 150/101 01/31/17 14:00 98.4 F 90 18 144/84 01/31/17 12:34 97 H 141/96 Intake and Output 01/31/17 02/01/17 02/01/17 22:59 06:59 14:59 Intake Total 480 Output Total 1700 350 Balance -1220 -350 Intake: Oral 480 Output: Urine 1700 350 Indwelling Catheter 1700 Void 350 Other: Total, Intake Amount 360 Total, Output Amount 1100 350 Voiding Method Indwelling Catheter - Exam Cardiovascular: Present: Normal S1, Normal S2 Lungs: Present: Clear to auscultation, Normal air movement Abdomen: Present: normal appearance. Absent: distention, tenderness, guarding Extremities: Present: normal. Absent: tenderness, edema Incision: Present: normal, dry, intact - Labs Labs: Abnormal lab results 01/31/17 01/31/17 Range/Units 14:12 20:15 Magnesium 4.30 H 3.60 H (1.7-2.3) mg/dL
[2017-02-01] MEDS: NORMODYNE PO SCH (09:51)
[2017-02-01] MEDS: MOTRIN PO PRN (09:53)
[2017-02-01 13:34] VITALS: BP 147/96
== END 2017-02-01 12:45 | disposition home or self-care (01) | DRG 776 ==
LOC: ED 15:55 → OB 01-31 00:28
PROVIDERS: ADMIT Obstetrics & Gynecology; ATTEND Obstetrics & Gynecology
DX: O14.15 Severe pre-eclampsia, complicating the puerperium (principal); O92.79 Other disorders of lactation; Z79.899 Other long term (current) drug therapy; Z83.3 Family history of diabetes mellitus
CPT/HCPCS: 36415; 70544; 70547; 70551; 80053; 81001; 83735; 85027; 96365; 96366; 96375; 96376; J0360; J2060; J3475; J7050; J7121

== ENCOUNTER 2017-12-03 01:15 | Emergency (ER) | payer BC, MEDICAID ==
[2017-12-03] MEDS ORDERED: TYLENOL PO ONE (01:36)
[2017-12-03 03:48] VITALS: BP 93/68
--- NOTE | 2017-12-03 04:36 | Emergency Department Report ---
ED ENT HPI - General Chief complaint: Sore Throat Stated complaint: SORE THROAT BODYACHES HEADACHE Source: patient Mode of arrival: Ambulatory Limitations: No Limitations - History of Present Illness MD complaint: sore throat -: days(s) Associated Symptoms: fever, cough, sore throat - Related Data Home Medications Medication Instructions Recorded Confirmed Last Taken Vit-Fe Fumar-FA [ 1 tab PO QDAY 01/18/17 01/30/17 01/30/17 Vitamin] Previous Rx's Medication Instructions Recorded Last Taken Type Labetalol [Normodyne TAB] 200 mg PO BID #60 tablet 02/01/17 Unknown Rx Allergies Allergy/AdvReac Type Severity Reaction Status Date / Time No Known Allergies Allergy Unverified 05/02/15 19:44 ED Dental HPI - General Chief complaint: Sore Throat Stated complaint: SORE THROAT BODYACHES HEADACHE Source: patient Mode of arrival: Ambulatory Limitations: No Limitations - Related Data Home Medications Medication Instructions Recorded Confirmed Last Taken Vit-Fe Fumar-FA [ 1 tab PO QDAY 01/18/17 01/30/17 01/30/17 Vitamin] Previous Rx's Medication Instructions Recorded Last Taken Type Labetalol [Normodyne TAB] 200 mg PO BID #60 tablet 02/01/17 Unknown Rx Allergies Allergy/AdvReac Type Severity Reaction Status Date / Time No Known Allergies Allergy Unverified 05/02/15 19:44 ED Review of Systems ROS: Stated complaint: SORE THROAT BODYACHES HEADACHE Other details as noted in HPI Comment: All other systems reviewed and negative Constitutional: fever. denies: chills Respiratory: cough. denies: orthopnea, shortness of breath, SOB with exertion, SOB at rest, wheezing Cardiovascular: denies: chest pain, palpitations Gastrointestinal: denies: abdominal pain, nausea, vomiting Musculoskeletal: denies: back pain ED Past Medical Hx - Past Medical History Previous Medical History?: No Hx Hypertension: No Hx Congestive Heart Failure: No Hx Diabetes: No Hx Deep Vein Thrombosis: No Hx Renal Disease: No Hx Sickle Cell Disease: No Hx Seizures: No Hx Asthma: No Hx COPD: No Hx HIV: No - Surgical History Additional Surgical History: - Social History Smoking Status: Never Smoker Substance Use Type: None - Medications Home Medications: Home Medications Medication Instructions Recorded Confirmed Last Taken Type Vit-Fe Fumar-FA [ 1 tab PO QDAY 01/18/17 01/30/17 01/30/17 History Vitamin] Labetalol [Normodyne TAB] 200 mg PO BID #60 tablet 02/01/17 Unknown Rx ED Physical Exam - General Limitations: No Limitations General appearance: alert, in no apparent distress - Head Head exam: Present: atraumatic, normocephalic, normal inspection - Eye Eye exam: Present: normal appearance, PERRL - ENT ENT exam: Present: normal exam, normal orophraynx, mucous membranes moist - Neck Neck exam: Present: normal inspection, full ROM. Absent: tenderness, meningismus, lymphadenopathy, thyromegaly - Respiratory Respiratory exam: Present: normal lung sounds bilaterally. Absent: respiratory distress, wheezes, rales, rhonchi, accessory muscle use, decreased breath sounds , prolonged expiratory - Cardiovascular Cardiovascular Exam: Present: regular rate, normal rhythm, normal heart sounds - GI/Abdominal GI/Abdominal exam: Present: soft. Absent: distended, tenderness, guarding, rebound, rigid - Extremities Exam Extremities exam: Present: normal inspection - Neurological Exam Neurological exam: Present: alert, oriented X3, CN II-XII intact, normal gait, reflexes normal - Skin Skin exam: Present: warm, intact, normal color ED Course Vital Signs 12/03/17 12/03/17 01:32 03:46 Temperature 99.2 F 98.5 F Pulse Rate 100 H 91 H Respiratory 16 19 Rate Blood Pressure 133/88 Blood Pressure 93/68 [Left] O2 Sat by Pulse 98 99 Oximetry Critical care attestation.: If time is entered above; I have spent that time in minutes in the direct care of this critically ill patient, excluding procedure time. ED Disposition Clinical Impression: Sore throat Disposition: DC-01 TO HOME OR SELFCARE Is pt being admited?: No Condition: Stable Instructions: Pharyngitis (ED) Referrals: PRIMARY CARE, [Primary Care Provider] - 3-5 Days
== END 2017-12-03 05:24 | disposition home or self-care (01) ==
LOC: ED 01:15
DX: J02.9 Acute pharyngitis, unspecified (principal)
CPT/HCPCS: 87116; 87430; 99282